=== PATIENT | female | born 1950 | race Asian ===

== ENCOUNTER 2017-09-18 18:13 | Emergency (ER) | payer MEDICARE ==
[~2017-09-18] VITALS: Ht 157.5 cm; Wt 63.6 kg
[~2017-09-18 18:13] MED LIST: ATOR20TA86 PO; LISI-662 PO
[2017-09-18] MEDS ORDERED: METF500T6 PO (18:16)
[2017-09-18 18:23] LABS: GLUCOSE,POINT OF CARE 134 MG/DL (70-110)
[2017-09-18 19:43] VITALS: BP 129/87
== END 2017-09-18 20:15 | disposition home or self-care (01) ==
LOC: EMS 18:14
DX: S01.81XA Laceration without foreign body of other part of head, initial encounter (principal); I10 Essential (primary) hypertension; E78.00 Pure hypercholesterolemia, unspecified; W45.8XXA Other foreign body or object entering through skin, initial encounter; Y93.89 Activity, other specified; Y92.89 Other specified places as the place of occurrence of the external cause; Y99.8 Other external cause status
CPT/HCPCS: 12013; 99283